=== PATIENT | male | born 1975 ===

== ENCOUNTER 2016-07-17 13:12 | Day surgery (SDC) | payer OTHER ==
[2016-07-17] MEDS ORDERED: LR 1,000 ML IV ONE (14:12)
[2016-07-17] MEDS ORDERED: LIDOCAINE 1% 5 ML SDV ID PRN (14:12)
[2016-07-17] MEDS ORDERED: ceFAZolin 2 GM/DEXTROSE 100 ML IV ONE (14:30)
[2016-07-17] MEDS ORDERED: BUPIVACAINE/EPI 0.5% 30 ML SDV ONE (14:33)
[2016-07-17] MEDS ORDERED: BUPIVACAINE 0.5% 30 ML SDV ONE (14:33)
[2016-07-17] MEDS ORDERED: PROPOFOL 200 MG/20 ML VIAL ONE ×2 (14:39→15:06)
[2016-07-17] MEDS ORDERED: fentaNYL 250 MCG/5 ML INJ ONE (14:39)
[2016-07-17] MEDS ORDERED: LIDOCAINE 2% 5 ML SDV ONE (14:42)
[2016-07-17] MEDS ORDERED: DEXAMETHASONE 4 MG/ML VIAL ONE (14:50)
[2016-07-17] MEDS ORDERED: MIDAZOLAM 2 MG/2 ML VIAL ONE (14:56)
[2016-07-17] MEDS ORDERED: ONDANSETRON 4 MG/2 ML VIAL ONE (15:16)
[2016-07-17] MEDS ORDERED: fentaNYL 100 MCG/2 ML INJ ONE ×2 (17:45→18:27)
[2016-07-17] MEDS ORDERED: HYDROCODONE/APAP 5/325 TAB ONE (18:30)
--- NOTE | 2016-07-17 18:44 | GHP ---
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 PROPOSED OPERATION: Revision ulnar nerve decompression and then anterior transposition and right ra dial carpal joint exploration, removal of loose bodies and then radial head excision with fascial ar throplasty. INDICATION: This patient had advanced arthritic change at the radiocapitellar joint with a lot of p ain with all elbow motions. X-ray showed step-off deformity and CT scan also showed step-off deform ity with evidence of joint space loss and degenerative change. It was felt that ulnar nerve revisio n, decompression should be done at the same sitting. DESCRIPTION OF PROCEDURE: Under general anesthesia, the patient's right arm was prepped and draped in the usual fashion. Arm tourniquet was initially applied at 250 mmHg and had to be increased to [address] the case due to excessive oozing. The ulnar nerve was approached through t he original surgical scar. That did not need to be extended proximally or distally. Skin and subcu taneous tissue was reflected. One branch of the medial antebrachial cutaneous nerve was identified and protected. The ulnar nerve was very adherent all the way along its course, and so extension pas t the cubital tunnel and down into the flexor carpi ulnaris muscle belly was required to identify it distally and then work proximally for a short distance. Then, early takeoff branches were encounte red. Proximally, the nerve was still entrapped and tethered at the arcade of [place]. That was rele ased and fascia overlying the nerve was released down to a point about 2 inches proximal to the medi al epicondyle where it had been transposed anteriorly, and the medial intermuscular septum was still intact, and that was compressing the nerve. Fascial release was performed at the medial arm and th e intermuscular septum was excised for a distance of about 1 inch. Then, by sharp dissection, tenot jennifer scissors as well as a 15 blade, the ulnar nerve was eventually from the medial epicond yle where it was apically tented over the medial epicondyle, and once it was freed as well as the di stal early takeoff branches, the whole nerve was transposed into a subcutaneous tunnel formed by sut uring subcutaneous tissue to flexor forearm muscle fascia. The nerve was palpated well down into th e flexor carpi ulnaris muscle belly as well as well up into the arm and was completely free along it s course. The subcutaneous tissue was then closed using 4-0 PDS interrupted simple sutures and figu re of eight sutures, and then skin was closed using horizontal mattress sutures of 5-0 Prolene. Attention was then turned to the lateral aspect of the elbow where a longitudinal incision was made, centered over the radiocapitellar joint and extending proximally and distally for an inch and a reji f in each direction. Skin and subcutaneous tissue was reflected. Lateral epicondylar bursa was patrick vated and reflected. The extensor carpi radialis longus was elevated from the brevis and common richar gin, and then an L-shaped incision made in the common origin and distally along the posterior aspect of the lateral epicondyle. This flap of common origin was elevated and the radiocapitellar joint i nspected. There was no articular cartilage left on the capitellum. A little bit of advanced chondr omalacic change peripherally and the radial head had stepoff deformity, significant fibrous tissue a nd degenerative osteophytes peripherally. The stepoff deformity had involved about 50% of the artic ular surface, and there appeared to be about 1/8 to even 1/16 of an inch of stepoff. This was not _ situation. Radial head replacement was considered but rejected, and instead, it was felt that fascial arthroplasty was his best option. The radial head was excised at about the neck area. The radial neck was rounded and smooth. There was very nice rotational stability with forearm pron ation and supination, and the proximal sigmoid fossa glided smoothly. Fascial arthroplasty was then performed by pursestringing capsular tissue and also using some of the scarred common origin tissue to cover the end of the radial head, and this was tacked together in a pursestring fashion and crea toni a nice sleeve for the proximal radius. This also created enough padding between radius and capi tellum to have a nice soft tissue slippery pad. Then, the common origin was suture repaired and roscoe nforced by suturing the extensor carpi radialis longus over the common origin. Range of motion of t he elbow and forearm were tested and found to have excellent range of motion with nice smooth glidin g. Stability of the radius was tested. The subcutaneous tissue was closed with figure of eight and simple sutures of 4-0 PDS, and then skin closed with horizontal mattress sutures of 5-0 Prolene. A bulky soft dressing was applied medially and laterally, followed by a sugar tong fiberglass splint held in place with Irwin bandages. This held the elbow in about 80 degrees of flexion and neutral for earm rotation. Tourniquet deflation resulted in immediate pinking of the digits. He was brought to the recovery area where detailed postoperative instructions were given prior to discharge. He had a prescription preoperatively for [place] and Keflex, and he was given 2 g of Ancef prior to commencem ent of surgery. Followup arrangements in the office for about a week postop for dressing and suture removal, cast application for 3 additional weeks, and then gentle active range of motion of the elb ow and forearm with posterior fiberglass splint between exercise periods. /[id number]/[id number]
== END 2016-07-17 19:50 | disposition home or self-care (01) ==
LOC: FSGY 13:12
PROVIDERS: ATTEND Specialist
PROC: 0RCL0ZZ Extirpation of Matter from Right Elbow Joint, Open Approach (ICD-10-PCS; principal; 2016-07-17 14:45)
PROC: 0RQL0ZZ Repair Right Elbow Joint, Open Approach (ICD-10-PCS; principal; 2016-07-17 14:45)
PROC: 01S40ZZ Reposition Ulnar Nerve, Open Approach (ICD-10-PCS; principal; 2016-07-17 14:45)
DX: G56.21 Lesion of ulnar nerve, right upper limb (principal); M12.521 Traumatic arthropathy, right elbow
CPT/HCPCS: J0690; J1100; J2250; J2405; J2704; J3010